=== PATIENT | female | born 1940 | race Caucasian/White ===

== ENCOUNTER → 2017-12-18 13:05 | Outpatient (CLI) | payer OTHER, SELFPAY | PROVIDERS: Family Provider Family Medicine; PCP Family Medicine; Visit Provider Family Medicine | DX: M85.851 Other specified disorders of bone density and structure, right thigh (principal) | CPT/HCPCS: 77080 ==

== ENCOUNTER → 2019-02-24 10:44 | Outpatient (CLI) | payer OTHER, SELFPAY ==
--- NOTE | 2019-02-24 | DI.RAD.S_ITS ---
PROCEDURE: XR HIP W PEL IF DONE LT MIN 4V INDICATIONS: HIP PAIN TECHNIQUE: AP pelvis with lateral view(s) of the left and right hip(s). COMPARISON: None. FINDINGS: Bones: No fractures or dislocations. Pelvic ring appears intact. No suspicious bony lesions. Lower lumbar spondylosis. Mild bilateral hip joint degeneration. Soft tissues: The visualized bowel gas pattern is normal. No suspicious soft tissue calcifications. IMPRESSION: Mild bilateral hip joint degeneration. If the patient's pain or other symptoms persist, consider further evaluation with MRI Dictated by: Owen Patel M.D. on 02/24/2019 at 17:00 Approved by: Owen Patel M.D. on 02/24/2019 at 17:01
== END ==
PROVIDERS: Family Provider Family Medicine; PCP Family Medicine; Visit Provider Nurse Practitioner Family
DX: M25.552 Pain in left hip (principal); M16.0 Bilateral primary osteoarthritis of hip; M47.816 Spondylosis without myelopathy or radiculopathy, lumbar region; R26.89 Other abnormalities of gait and mobility
CPT/HCPCS: 73522

== ENCOUNTER → 2020-07-13 14:37 | Outpatient (CLI) | payer OTHER, SELFPAY ==
[2020-07-13] MEDS: COVID-19 VACC, Ad26(JANSSEN)/PF 0.5 ML IM (14:44)
== END ==
PROVIDERS: Visit Provider Internal Medicine
DX: Z23 Encounter for immunization (principal)
CPT/HCPCS: 0031A; 91303